=== PATIENT | male | born 1955 | race Caucasian/White ===

== ENCOUNTER 2017-05-16 07:03 | Day surgery (SDC) | payer OTHER ==
[~2017-05-16] VITALS: Ht 190.5 cm; Wt 108.8 kg
[~2017-05-16 07:03] MED LIST: ASPIRIN81 M2 PO; FISH OIL 1,0001 EAC7 PO; LASIX40 MG PO; METOLAZONE5 MG PO; OXYCODONE-ACET1 EACH PO; PRADAXA150 MG PO; SYNTHROID50 MCG PO; TOPROL XL25 MG PO; TRAMADOL HCL50 MG PO; VENTOLIN HFA18 GM IH; ZYLOPRIM100 MG PO
[2017-05-16] MEDS ORDERED: PREDNISONE5 MG PO (07:45)
[2017-05-16 07:50] VITALS: BP 165/104
[2017-05-16] MEDS ORDERED: PERCOCET 2.51 TABLET PO (10:20)
[2017-05-16 13:07] VITALS: BP 128/81
[2017-05-16 14:01] VITALS: BP 130/79
== END 2017-05-16 14:14 | disposition home or self-care (01) ==
LOC: SDC 07:03
PROC: 0WUF4JZ Supplement Abdominal Wall with Synthetic Substitute, Percutaneous Endoscopic Approach (ICD-10-PCS; principal; 2017-05-16)
DX: K42.0 Umbilical hernia with obstruction, without gangrene (principal); I48.91 Unspecified atrial fibrillation; I10 Essential (primary) hypertension; E03.9 Hypothyroidism, unspecified; G62.9 Polyneuropathy, unspecified; G47.30 Sleep apnea, unspecified; Z79.82 Long term (current) use of aspirin; Z79.02 Long term (current) use of antithrombotics/antiplatelets; Z82.49 Family history of ischemic heart disease and other diseases of the circulatory system; Z80.0 Family history of malignant neoplasm of digestive organs
CPT/HCPCS: C1781; J0131; J0690; J1100; J1170; J2250; J2405; J2710; J3010